=== PATIENT | male | born 1990 | race Caucasian/White ===

== ENCOUNTER 2017-12-02 08:16 | Emergency (ER) | payer MEDICAID ==
[~2017-12-02] VITALS: Ht 180.3 cm; Wt 59.2 kg
[~2017-12-02 08:16] MED LIST: CLON0.1T20 PO; DIPH25CA83 PO; ESOM40CA PO; IBUP-2264 PO; ONDA4TAB59 PO; ONDA4TAB6 PO; ONDA8TAB9 PO; PANT-47 PO
[2017-12-02 08:25] VITALS: BP 153/111
== END 2017-12-02 11:35 | disposition left against medical advice (07) ==
LOC: ER 08:17
DX: R11.2 Nausea with vomiting, unspecified (principal); Z53.21 Procedure and treatment not carried out due to patient leaving prior to being seen by health care provider

== ENCOUNTER 2018-12-15 07:06 | Emergency (ER) | payer SELFPAY ==
[~2018-12-15] VITALS: Ht 180.3 cm; Wt 58.0 kg
[~2018-12-15 07:06] MED LIST changes: +ONDA4TAB12 PO
[2018-12-15 07:09] VITALS: BP 163/112
[2018-12-15] MEDS ORDERED: haloperidol lactate 5mg/ml inj IM ONE (07:25)
[2018-12-15] MEDS ORDERED: LORazepam 2 mg/ml vial IV ONE (07:25)
[2018-12-15] MEDS ORDERED: ondansetron/PF 4mg/2ml inj IV ONE (07:30)
[2018-12-15] MEDS ORDERED: normal saline 1000ML IV soln IVB ONE (07:30)
[2018-12-15 08:08] LABS: BASOPHILS # (AUTO) 0.1 X10'3 (0-0.2); BASOPHILS % (AUTO) 0.6 % (0-1); EOSINOPHILS % (AUTO) 0.4 % (0-6); HEMATOCRIT 49.3 % (42.0-52.0); HEMOGLOBIN 16.8 g/dl (14.0-17.9); LYMPHOCYTES # (AUTO) 1.7 X10'3 (1.1-4.8); LYMPHOCYTES % (AUTO) 19.7 % (21-51); MEAN CORPUSCULAR HEMOGLOBIN 31.3 PG (27.0-31.0); MEAN CORPUSCULAR HGB CONC 34.1 g/dL (33.0-36.5); MEAN CORPUSCULAR VOLUME 91.6 FL (78-98); MEAN PLATELET VOLUME 8.1 FL (7.4-10.4); MONOCYTES # (AUTO) 0.6 X10'3 (0-0.9); MONOCYTES % (AUTO) 6.5 % (2-12); NEUTROPHILS # (AUTO) 6.3 X10'3 (1.8-7.7); NEUTROPHILS % (AUTO) 72.8 % (42-75); PLATELET COUNT 295 X10'3 (140-440); RED BLOOD COUNT 5.39 X10'6 (4.70-6.10); RED CELL DISTRIBUTION WIDTH 12.7 % (11.5-14.5); WHITE BLOOD COUNT 8.7 X10'3 (4.5-11.0)
[2018-12-15 08:17] LABS: ALANINE AMINOTRANSFERASE 48 U/L (12-78); ALBUMIN 4.6 G/DL (3.4-5.0); ALBUMIN/GLOBULIN RATIO 1.4 (1.1-1.5); ALKALINE PHOSPHATASE 71 IU/L (46-116); ANION GAP 10 (8-16); ASPARTATE AMINO TRANSFERASE 18 U/L (10-37); BILIRUBIN,TOTAL 0.8 MG/DL (0.1-1.0); BLOOD UREA NITROGEN 13 MG/DL (7-18); BUN/CREATININE RATIO 12.3 (5.4-32.0); CHLORIDE 99 MMOL/L (99-107); CREATININE 1.06 MG/DL (0.60-1.10); GLUCOSE 94 MG/DL (70-104); LIPASE 141 U/L (73-393); POTASSIUM 3.8 MMOL/L (3.5-5.1); SODIUM 137 MMOL/L (135-145); TOTAL CARBON DIOXIDE 28.5 MMOL/L (24-32); eGFR 84 ML/MIN
[2018-12-15 08:31] LABS: CLARITY,URINE CLOUDY (Clear); COLOR,URINE YELLOW (Yellow); GLUCOSE, URINE NEGATIVE (Neg); KETONES,URINE TRACE mg/dl (Neg); LEUKOCYTE ESTERASE ,URINE NEGATIVE (Neg); NITRITES, URINE NEGATIVE (Neg); OCCULT BLOOD,URINE NEGATIVE (Neg); PROTEIN,URINE 30 mg/dl (Neg); UA COLLECTION TYPE CLN CATCH MIDSTREAM
[2018-12-15 08:41] LABS: MUCUS STRANDS MODERATE /LPF (Neg); SQUAMOUS EPITHELIAL CELL,UR FEW /LPF (FEW)
[2018-12-15 08:42] LABS: BACTERIA,URINE FEW /HPF (Neg); CAL OXALATE CRYSTALS FEW /HPF (NEGATIVE); RBC,URINE 0-2 /HPF (0-2); WBC,URINE 0-4 /HPF (0-4)
[2018-12-15] MEDS ORDERED: morphine 4 MG/ML inj SYRINge IV ONE (08:55)
== END 2018-12-15 09:41 | disposition home or self-care (01) ==
LOC: ER 07:07
DX: F12.188 Cannabis abuse with other cannabis-induced disorder (principal); R11.10 Vomiting, unspecified; R10.13 Epigastric pain; K21.9 Gastro-esophageal reflux disease without esophagitis; F11.90 Opioid use, unspecified, uncomplicated; Z79.899 Other long term (current) drug therapy; Z87.11 Personal history of peptic ulcer disease; Z90.49 Acquired absence of other specified parts of digestive tract; Z98.890 Other specified postprocedural states; Z88.8 Allergy status to other drugs, medicaments and biological substances
CPT/HCPCS: 36415; 80053; 81001; 83690; 85025; 85610; 96361; 96372; 96374; 96375; 99283; J1630; J2060; J2270; J2405; J7030

== ENCOUNTER 2019-04-03 06:48 | Emergency (ER) | payer SELFPAY ==
[~2019-04-03] VITALS: Ht 180.3 cm; Wt 57.3 kg
[~2019-04-03 06:48] MED LIST changes: -IBUP-2264 PO; +IBUP-2697 PO
[2019-04-03 06:51] VITALS: BP 158/107
[2019-04-03] MEDS ORDERED: haloperidol lactate 5mg/ml inj IM ONE (07:00)
[2019-04-03] MEDS ORDERED: LORazepam 2 mg/ml vial IM ONE (07:00)
--- NOTE | 2019-04-03 07:05 | NUR ---
VO DR. SOSA TO D/C LABS AND US/ ADMIN IM MEDICATIONS
[2019-04-03 07:21] LABS: BASOPHILS # (AUTO) 0.1 X10'3 (0-0.2); BASOPHILS % (AUTO) 0.4 % (0-1); EOSINOPHILS % (AUTO) 0 % (0-6); HEMATOCRIT 47.6 % (42.0-52.0); LYMPHOCYTES # (AUTO) 2.3 X10'3 (1.1-4.8); LYMPHOCYTES % (AUTO) 17.5 % (21-51); MEAN CORPUSCULAR HEMOGLOBIN 30.3 PG (27.0-31.0); MEAN CORPUSCULAR HGB CONC 33.5 g/dL (33.0-36.5); MEAN CORPUSCULAR VOLUME 90.3 FL (78-98); MEAN PLATELET VOLUME 7.7 FL (7.4-10.4); MONOCYTES % (AUTO) 7.7 % (2-12); NEUTROPHILS # (AUTO) 9.6 X10'3 (1.8-7.7); NEUTROPHILS % (AUTO) 74.4 % (42-75); PLATELET COUNT 319 X10'3 (140-440); RED BLOOD COUNT 5.27 X10'6 (4.70-6.10); RED CELL DISTRIBUTION WIDTH 12.8 % (11.5-14.5); WHITE BLOOD COUNT 12.9 X10'3 (4.5-11.0)
[2019-04-03 07:38] LABS: ALANINE AMINOTRANSFERASE 30 U/L (12-78); ALBUMIN 4.6 G/DL (3.4-5.0); ALBUMIN/GLOBULIN RATIO 1.3 (1.1-1.5); ALKALINE PHOSPHATASE 72 IU/L (46-116); ANION GAP 12 (8-16); BLOOD UREA NITROGEN 15 MG/DL (7-18); BUN/CREATININE RATIO 16.7 (5.4-32.0); CALCIUM 9.5 MG/DL (8.5-10.1); CHLORIDE 99 MMOL/L (99-107); GLUCOSE 123 MG/DL (70-104); SODIUM 140 MMOL/L (135-145); TOTAL CARBON DIOXIDE 28.8 MMOL/L (24-32); TOTAL PROTEIN 8.2 G/DL (6.4-8.2); eGFR > 90 ML/MIN
[2019-04-03 07:39] LABS: ASPARTATE AMINO TRANSFERASE 24 U/L (10-37); POTASSIUM 4.2 MMOL/L (3.5-5.1)
== END 2019-04-03 07:46 | disposition left against medical advice (07) ==
LOC: ER 06:49
DX: F12.188 Cannabis abuse with other cannabis-induced disorder (principal); R11.10 Vomiting, unspecified; R10.9 Unspecified abdominal pain; K21.9 Gastro-esophageal reflux disease without esophagitis; F41.9 Anxiety disorder, unspecified; F11.90 Opioid use, unspecified, uncomplicated; Z90.49 Acquired absence of other specified parts of digestive tract; Z79.899 Other long term (current) drug therapy; Y90.9 Presence of alcohol in blood, level not specified
CPT/HCPCS: 36415; 80053; 85025; 85610; 96372; 99283; J1630

== ENCOUNTER 2024-05-10 10:10 | Emergency (ER) | payer MEDICAID ==
[~2024-05-10] VITALS: Ht 180.3 cm; Wt 72.7 kg
[~2024-05-10 10:10] MED LIST changes: +CLON0.1T2 PO; -CLON0.1T20 PO; +ONDA-243 PO; -ONDA4TAB12 PO
[2024-05-10 10:30] VITALS: TEMP 98
[2024-05-10 12:05] VITALS: BP 130/104; PULSE 95; RESP 16; O2SAT 98
[2024-05-10] MEDS ORDERED: tetanus & diphtheria toxoid (Td) vaccine 0.5ml IMVAC ONE (12:05)
[2024-05-10] MEDS: TETanus/Pertussis (Acell)/Diphther VAC/PF (Tdap-Adult) 0.5ml syringe IMVAC ONE (12:10)
[2024-05-10] MEDS: LIDOcaine 1% 30ml preserv. free vial SQ STA (12:14)
== END 2024-05-10 12:29 | disposition home or self-care (01) ==
LOC: ER 10:10
DX: S61.011A Laceration without foreign body of right thumb without damage to nail, initial encounter (principal); K21.9 Gastro-esophageal reflux disease without esophagitis; F41.9 Anxiety disorder, unspecified; F12.90 Cannabis use, unspecified, uncomplicated; F11.90 Opioid use, unspecified, uncomplicated; Z79.899 Other long term (current) drug therapy; Z90.49 Acquired absence of other specified parts of digestive tract; Z72.89 Other problems related to lifestyle; X58.XXXA Exposure to other specified factors, initial encounter; Y93.89 Activity, other specified; Y92.89 Other specified places as the place of occurrence of the external cause; Y99.8 Other external cause status
CPT/HCPCS: 12002; 90471; 90715; 99283; A4565; A6258